=== PATIENT | female | born 1945 | race Caucasian/White ===

== ENCOUNTER 2021-03-11 20:20 | Emergency (ER) | payer OTHER ==
[~2021-03-11] VITALS: Ht 170.2 cm; Wt 65.3 kg
[2021-03-11 21:32] VITALS: BP 149/80
[2021-03-11] MEDS ORDERED: KETOROLAC 60 MG/2 ML VIAL IM ONE (22:05)
--- NOTE | 2021-03-11 22:07 | NUR ---
VERBAL ORDER DAWNA NOE, HOLD IV INSERTION AT THIS TIME. ORDER PLACED.
[2021-03-11 22:11] LABS: BASOPHILS % (AUTO) 0.4 % (0.0-2.0); EOSINOPHILS % (AUTO) 0.4 % (0.0-4.0); HEMATOCRIT 40.3 % (36-48); HEMOGLOBIN 13.5 g/dL (12.0-16.0); LYMPHOCYTES % (AUTO) 29.3 % (20.5-51.1); MEAN CORPUSCULAR HEMOGLOBIN 30 pg (27-31); MEAN CORPUSCULAR HGB CONC 34 g/dL (33-37); MEAN CORPUSCULAR VOLUME 87.8 fL (80-94); MONOCYTES # (AUTO) 0.3 K/uL (0.8-1.0); MONOCYTES % (AUTO) 9.9 % (1.7-9.3); PLATELET COUNT (AUTO) 200 K/uL (140-450); RED BLOOD CELL COUNT(AUTO) 4.59 MIL/uL (4.20-5.40); RED CELL DISTRIBUTION WIDTH 14.5 % (11.6-13.7); WHITE BLOOD COUNT (AUTO) 3.4 K/uL (4.8-10.8)
[2021-03-11 22:29] LABS: ALBUMIN 3.8 g/dL (3.4-5.0); ANION GAP 8.4 (8-16); ASPARTATE AMINOTRANSFERASE 22 U/L (15-37); CARBON DIOXIDE 30.1 mmol/L (21-32); CHLORIDE 106 mmol/L (98-107); CREATININE 0.7 mg/dL (0.6-1.3); GLUCOSE 137 mg/dL (74-106); POTASSIUM 4.5 mmol/L (3.5-5.1); SODIUM SERUM 140 mmol/L (136-145); TOTAL BILIRUBIN 0.2 mg/dL (0.0-1.0); UREA NITROGEN, BLOOD 9 mg/dL (7-18)
--- NOTE | 2021-03-11 23:09 | NUR ---
CALLED FOR CT, KAREN SPEARS STATED HE WILL BE COMING UP SOON FOR PT.
--- NOTE | 2021-03-11 23:14 | NUR ---
PT TAKEN TO CT VIA W/C.
--- NOTE | 2021-03-11 23:45 | NUR ---
PT AMBULATED TO BED 12.
--- NOTE | 2021-03-11 23:45 | NUR ---
C/C CP AND SOB X 8 DAYS. REPORTS PAIN GOT WORSE THE PAST 5 DAYS, RATES PAIN 8/10. REPORTS LT SIDED CP THAT RADIATES TO BIALTERAL UPPER BACK. DENIES COUGH, FEVER, CHILLS, N/V/D. PT STATES SHE WAS REFERRED BY URGENT CARE TO R/O PNA AND PE. ALLERIGES: CODEINE PMH: HTN, DM, PNA, LUPUS. RX: ELIQUIS, AMLODIPINE, PREDNISONE, DEXILANT.
[2021-03-12] MEDS ORDERED: NAPR-54 PO (00:30)
--- NOTE | 2021-03-12 00:32 | NUR ---
ERMD AT BEDSIDE.
== END 2021-03-12 00:36 | disposition home or self-care (01) ==
LOC: MED 20:20
DX: M94.0 Chondrocostal junction syndrome [Tietze] (principal); Z88.5 Allergy status to narcotic agent; Z79.899 Other long term (current) drug therapy
CPT/HCPCS: 36415; 71045; 71250; 80053; 84484; 85025; 85379; 93005; 96372; 99285; J1885

== ENCOUNTER 2021-09-18 15:47 | Emergency (ER) | payer OTHER ==
[~2021-09-18] VITALS: Ht 154.9 cm; Wt 64.0 kg
[~2021-09-18 15:47] MED LIST: NAPR-54 PO
[2021-09-18 15:58] VITALS: BP 145/63
--- NOTE | 2021-09-18 17:06 | NUR ---
PT AMBULATED TO ER BED 12 WITH A STEADY GAIT.
--- NOTE | 2021-09-18 17:18 | NUR ---
76 Y/O FEMALE C/O GENERALIZED ABDOMINAL PAIN 10/10 DESCRIBES ACHING AND CRAMPING NON-RADIATING [id number]. PT ALSO C/O BODY PAIN [id number]. STATES +N/V, DENIES FEVER/CHILLS. ABD IS SOFT, ROUND, NON-TENDER TO PALPATION, BOWEL SOUNDS ACTIVE X4. PMH: HTN, LUPUS ALLERGIES: CODEINE
--- NOTE | 2021-09-18 18:22 | NUR ---
DR. MACIAS AT PT BEDSIDE FOR FURTHER EVALUATION.
[2021-09-18] MEDS: ONDANSETRON 4 MG ODT PO ONE ×3 (18:27→18:52)
[2021-09-18] MEDS: DICYCLOMINE HCL LIQUID 20 MG, ALUMINUM HYD/MAG/SIMETHICONE 30 ML, LIDOCAINE VISCOUS 2% ... PO ONE ×9 (18:28→18:52)
[2021-09-18] MEDS: KETOROLAC 60 MG/2 ML VIAL IM ONE ×3 (18:29→18:53)
[2021-09-18] MEDS ORDERED: ALUMINUM HYD/MAG/SIMETHICONE 30 ML UDC ONE (18:34)
[2021-09-18] MEDS ORDERED: DICYCLOMINE HCL LIQUID 10 MG/5 ML UDC ONE (18:34)
--- NOTE | 2021-09-18 19:28 | NUR ---
GAVE REPORT TO CLEMENTINA JIMENEZ. TRANSFER OF CARE AT THIS TIME.
[2021-09-18] MEDS ORDERED: OMEP40EC24 PO (19:35)
[2021-09-18] MEDS ORDERED: ONDA8TAB87 PO (19:35)
[2021-09-18] MEDS ORDERED: ACET-8386 PO (19:35)
[2021-09-18] MEDS ORDERED: IBUP-2213 PO (19:35)
[2021-09-18 19:45] VITALS: BP 140/64
--- NOTE | 2021-09-18 19:45 | NUR ---
Patient discharged with v/s stable. Written and verbal after care instructions given and explained. Patient alert, oriented and verbalized understanding of instructions. Ambulatory with steady gait. All questions addressed prior to discharge. ID band removed. Patient advised to follow up with PMD. Rx of HYDROCODONE/TYLENOL, PRILOSEC, ZOFRAN AND IBUPROFEN given. Patient educated on indication of medication including possible reaction and side effects. Opportunity to ask questions provided and answered.
== END 2021-09-18 19:45 | disposition home or self-care (01) ==
LOC: MED 15:47
DX: R10.13 Epigastric pain (principal); M79.10 Myalgia, unspecified site; R11.2 Nausea with vomiting, unspecified; I10 Essential (primary) hypertension; Z79.899 Other long term (current) drug therapy; Z88.5 Allergy status to narcotic agent; Z90.49 Acquired absence of other specified parts of digestive tract
CPT/HCPCS: 81002; 93005; 96372; 99283; J1885; Q0162

== ENCOUNTER 2022-10-01 17:58 | Inpatient (IN) | payer OTHER ==
[~2022-10-01] VITALS: Ht 157.5 cm; Wt 70.3 kg
[~2022-10-01 17:58] MED LIST changes: +ACET-8905 PO; +IBUP-2213 PO; +OMEP40EC24 PO; +ONDA8TAB87 PO
[2022-10-01 18:01] VITALS: BP 136/76
--- NOTE | 2022-10-01 18:08 | NUR ---
pt ambulated to er bed 7
[2022-10-01 18:51] LABS: BASOPHILS % (AUTO) 0.3 % (0.0-2.0); EOSINOPHILS % (AUTO) 0.1 % (0.0-4.0); HEMATOCRIT 39.7 % (36-48); HEMOGLOBIN 13.2 g/dL (12.0-16.0); LYMPHOCYTES # (AUTO) 0.7 K/uL (2.5-16.5); MEAN CORPUSCULAR HEMOGLOBIN 28 pg (27-31); MEAN CORPUSCULAR HGB CONC 33 g/dL (33-37); MEAN CORPUSCULAR VOLUME 83.1 fL (80-94); MONOCYTES # (AUTO) 0.7 K/uL (0.8-1.0); MONOCYTES % (AUTO) 10.3 % (1.7-9.3); NEUTROPHILS # (AUTO) 5.2 K/uL (1.8-7.7); NEUTROPHILS % (AUTO) 78.3 % (42.2-75.2); PLATELET COUNT (AUTO) 194 K/uL (140-450); RED BLOOD CELL COUNT(AUTO) 4.78 MIL/uL (4.20-5.40); RED CELL DISTRIBUTION WIDTH 14.7 % (11.6-13.7); WHITE BLOOD COUNT (AUTO) 6.6 K/uL (4.8-10.8)
--- NOTE | 2022-10-01 18:57 | NUR ---
77/F PRESENTS TO ED WITH C/O COUGH AND EPISODES OF SOB X2 WEEKS. PATIENT REPORTS SOB RELATED TO INCREASED PHLEGM PRODUCTION. REPORTS INTERMITTENT FEVERS, DENIES N/V/D, CHILLS, CP OR RECENT SICK CONTACTS.
[2022-10-01 19:09] LABS: ALBUMIN 3.8 g/dL (3.4-5.0); ANION GAP 13.8 (8-16); ASPARTATE AMINOTRANSFERASE 29 U/L (15-37); CHLORIDE 98 mmol/L (98-107); CREATININE 0.9 mg/dL (0.6-1.3); GLUCOSE 131 mg/dL (74-106); POTASSIUM 3.8 mmol/L (3.5-5.1); SODIUM SERUM 131 mmol/L (136-145); TOTAL BILIRUBIN 0.7 mg/dL (0.0-1.0); UREA NITROGEN, BLOOD 13 mg/dL (7-18)
--- NOTE | 2022-10-01 19:24 | NUR ---
Pt report given to IDALMIS SU. Transfer of care at this time.
[2022-10-01] MEDS ORDERED: AZITHROMYCIN 500 MG in DEXTROSE 5% 250 ML IV ONE (20:00)
[2022-10-01] MEDS ORDERED: cefTRIAXone 1,000 MG VIAL ONE (20:26)
[2022-10-01] MEDS ORDERED: ACETAMINOPHEN 325 MG TAB PO PRN (20:30)
[2022-10-01] MEDS ORDERED: LORazepam 2 MG/ML VIAL IVP PRN (20:30)
[2022-10-01] MEDS ORDERED: ZOLPIDEM 10 MG TAB PO PRN (20:30)
[2022-10-01] MEDS ORDERED: ONDANSETRON 4 MG/2 ML VIAL IVP PRN (20:30)
[2022-10-01] MEDS ORDERED: MAG SULF 2000 MG/WATER PREMIX 50 ML IV PRN (20:30)
[2022-10-01] MEDS ORDERED: POTASSIUM CHLORIDE 10 MEQ TABER PO PRN (20:30)
[2022-10-01] MEDS ORDERED: DOCUSATE SODIUM 100 MG GELCAP PO PRN (20:30)
[2022-10-01] MEDS ORDERED: AZITHROMYCIN 500 MG INJ VIAL IV ONE (21:30)
--- NOTE | 2022-10-01 21:48 | NUR ---
Patient will be admitted to care of DR ABERNATHY. Admited to TELE. Will go to [id number]. Belongings list completed. Report to ROLF MCRAE.
--- NOTE | 2022-10-01 21:48 | NUR ---
REPORT GIVEN TO KIMBERLY MCRAE . GETTING PT READY TO TRANSPORT TO TELE BED
--- NOTE | 2022-10-01 21:55 | NUR ---
PT TO THE FLOOR AT THIS TIME
--- NOTE | 2022-10-01 22:00 | NUR ---
RECEIVED PATIENT FROM ER NURSE VIA [facility] FOR CONTINUITY OF CARE. PATIENT IS ALERT ORIENTED X 4. ADMITTED FOR SOB AND COUGH. NO COMPLAIN OF PAIN AT THIS TIME . PIV INTACT AND PATENT. NO SOB NOTED AT THIS TIME. ON 2LITERS NC. WILL CONTINUE TO MONITOR
--- NOTE | 2022-10-01 22:14 | NUR ---
The patient's care was reviewed and supervised by Janine Pollard RN.
[2022-10-01] MEDS: AZITHROMYCIN 500 MG in DEXTROSE 5% 250 ML IV SCH (22:30)
[2022-10-02] VITALS: BP 129/64
[2022-10-02 04:00] VITALS: BP 127/66
[2022-10-02 07:00] LABS: BASOPHILS % (AUTO) 0.3 % (0.0-2.0); EOSINOPHILS % (AUTO) 0.6 % (0.0-4.0); HEMATOCRIT 35.9 % (36-48); HEMOGLOBIN 12.1 g/dL (12.0-16.0); LYMPHOCYTES # (AUTO) 1.1 K/uL (2.5-16.5); LYMPHOCYTES % (AUTO) 20.2 % (20.5-51.1); MEAN CORPUSCULAR HEMOGLOBIN 28 pg (27-31); MEAN CORPUSCULAR HGB CONC 34 g/dL (33-37); MEAN CORPUSCULAR VOLUME 82.9 fL (80-94); MONOCYTES # (AUTO) 0.6 K/uL (0.8-1.0); MONOCYTES % (AUTO) 11.7 % (1.7-9.3); NEUTROPHILS # (AUTO) 3.7 K/uL (1.8-7.7); NEUTROPHILS % (AUTO) 67.2 % (42.2-75.2); PLATELET COUNT (AUTO) 183 K/uL (140-450); RED BLOOD CELL COUNT(AUTO) 4.32 MIL/uL (4.20-5.40); RED CELL DISTRIBUTION WIDTH 14.1 % (11.6-13.7); WHITE BLOOD COUNT (AUTO) 5.5 K/uL (4.8-10.8)
[2022-10-02 07:02] LABS: ANION GAP 11.3 (8-16); CARBON DIOXIDE 26.5 mmol/L (21-32); CHLORIDE 101 mmol/L (98-107); CREATININE 0.7 mg/dL (0.6-1.3); GLUCOSE 95 mg/dL (74-106); POTASSIUM 3.8 mmol/L (3.5-5.1); SODIUM SERUM 135 mmol/L (136-145); UREA NITROGEN, BLOOD 8 mg/dL (7-18)
[2022-10-02 08:00] VITALS: BP 124/65
--- NOTE | 2022-10-02 08:51 | NUR ---
PATIENT HAS BEEN SCREENED AND CATEGORIZED MODERATE NUTRITION RISK. PATIENT WILL BE SEEN WITHIN 3-5 DAYS OF ADMISSION. /10/25 REVIEWED BY JOSUE CARMICHAEL RD
[2022-10-02 12:00] VITALS: BP 114/57
[2022-10-02 16:00] VITALS: BP 133/67
--- NOTE | 2022-10-02 16:46 | NUR ---
0730: RECEIVED PT FROM ROLF MCRAE. PT RESTING IN BED EYES CLOSED. NO GAURDING OR GRIMACING NOTED. NO ACUTE DISTRESS NOTED AT THIS TIME. [id number].
[2022-10-02 20:00] VITALS: BP 124/65
--- NOTE | 2022-10-02 20:04 | NUR ---
0750: REPORT GIVEN TO GEN MCRAE. PT STABLE. NO GAURDING OR GRIMACING NOTED. [id number].
--- NOTE | 2022-10-02 20:05 | NUR ---
PATIENT AWAKE ALERT IN BED ON 2L O2 VIA NC TOLERATING WELL. NO SOB NOTED. RESPIRATION EVEN UNLABORED. IV ACCESS TO THE RIGHT AC INTACT AND PATENT. DENIES PAIN. AFEBRILE. CALL LIGHT ON EASY REACH. SAFETY PRECAUTIONS ARE IN PLACE. REMINDED PATIENT TO ASK FOR ASSISTANCE WHEN NEEDED.
--- NOTE | 2022-10-02 20:53 | NUR ---
ADMINISTERED SCHEDULED DUE MEDICATIONS.
[2022-10-02] MEDS: METOPROLOL 25 MG TAB PO SCH (20:55)
[2022-10-02] MEDS: AZITHROMYCIN 500 MG in DEXTROSE 5% 250 ML IV SCH (23:57)
[2022-10-03] VITALS: BP 115/64
[2022-10-03 04:00] VITALS: BP 131/75
[2022-10-03 06:30] LABS: BASOPHILS % (AUTO) 0.4 % (0.0-2.0); EOSINOPHILS # (AUTO) 0.1 K/uL (0-0.4); EOSINOPHILS % (AUTO) 2.3 % (0.0-4.0); HEMATOCRIT 39.8 % (36-48); HEMOGLOBIN 13.2 g/dL (12.0-16.0); LYMPHOCYTES # (AUTO) 1.1 K/uL (2.5-16.5); LYMPHOCYTES % (AUTO) 24.7 % (20.5-51.1); MEAN CORPUSCULAR HEMOGLOBIN 28 pg (27-31); MEAN CORPUSCULAR HGB CONC 33 g/dL (33-37); MEAN CORPUSCULAR VOLUME 83.1 fL (80-94); MONOCYTES # (AUTO) 0.7 K/uL (0.8-1.0); MONOCYTES % (AUTO) 14.9 % (1.7-9.3); NEUTROPHILS # (AUTO) 2.6 K/uL (1.8-7.7); NEUTROPHILS % (AUTO) 57.7 % (42.2-75.2); PLATELET COUNT (AUTO) 205 K/uL (140-450); RED BLOOD CELL COUNT(AUTO) 4.79 MIL/uL (4.20-5.40); RED CELL DISTRIBUTION WIDTH 13.9 % (11.6-13.7); WHITE BLOOD COUNT (AUTO) 4.5 K/uL (4.8-10.8)
[2022-10-03 06:35] LABS: ANION GAP 12.8 (8-16); CHLORIDE 103 mmol/L (98-107); CREATININE 0.7 mg/dL (0.6-1.3); GLUCOSE 93 mg/dL (74-106); POTASSIUM 3.8 mmol/L (3.5-5.1); SODIUM SERUM 138 mmol/L (136-145); UREA NITROGEN, BLOOD 9 mg/dL (7-18)
--- NOTE | 2022-10-03 07:31 | NUR ---
ALL NEEDS MET THROUGHOUT THE SHIFT. ENDORSED TO DAY SHIFT NURSE FOR CONTINUITY OF CARE.
[2022-10-03 08:00] VITALS: BP 118/67
[2022-10-03] MEDS: METOPROLOL 25 MG TAB PO SCH ×2 (08:51→20:23)
[2022-10-03] MEDS ORDERED: ALBUTEROL HFA MDI 90 MCG/ACTUATION 8 GM INH PRN (11:35)
[2022-10-03] MEDS ORDERED: ALBUTEROL 0.083% 2.5 MG/3 ML NEBU INH PRN (11:40)
[2022-10-03 12:00] VITALS: BP 124/62
--- NOTE | 2022-10-03 14:30 | NUR ---
DID A 6 MIN WALK WITH PT TO DETERMINE IF REQUIRES HOME O2. PT WAS IN NO DISTRESS DURING THE WALK AND STAYED ABOVE 91% ON ROOMAIR. PT WAS TAKEN BACK TO HER ROOM AND SAT ON HER CHAIR. FACILITY SUPERVISOR WAS GIVEN INFO ON HOW PT DID AND THAT SHE DID NOT QUALIFY FOR HOME O2 AT THIS TIME.
[2022-10-03 16:00] VITALS: BP 117/58
--- NOTE | 2022-10-03 19:48 | NUR ---
0800 10/03/2022: RECEIVED PT FROM GEN MCRAE. PT RESTING IN BED EYES CLOSED. NO GUARDING OR GRIMACING. NO ACUTE DISTRESS NOTED AT THIS TIME. [id number].
--- NOTE | 2022-10-03 19:50 | NUR ---
1944: REPORTED OFF TO GEN MCRAE. PT RESTING IN BED. NO GUARDING OR GRIMACING. NO ACUTE DISTRESS NOTED AT THIS TIME. MNURMV2.
[2022-10-03 20:00] VITALS: BP 135/67
--- NOTE | 2022-10-03 20:00 | NUR ---
PATIENT AWAKE ALERT ORIENTED [place] SPEAKING. RESTING IN BED COMFORTABLY. NO ACUTE DISTRESS. DENIES PAIN. ABLE TO COMMUNICATE WITH HER NEEDS. SKIN WARM AND DRY TO THE TOUCH. CALL LIGHT WITHIN REACH.
--- NOTE | 2022-10-03 20:23 | NUR ---
ADMINISTERED SCHEDULED DUE MEDICATIONS.
[2022-10-03] MEDS: guaiFENesin 600 MG TABER PO SCH (20:24)
[2022-10-03] MEDS: AZITHROMYCIN 500 MG in DEXTROSE 5% 250 ML IV SCH (23:05)
[2022-10-04] VITALS: BP 138/79
[2022-10-04 04:00] VITALS: BP 127/64
--- NOTE | 2022-10-04 06:55 | NUR ---
ALL NEEDS ATTENDED AND MET THROUGHOUT THE SHIFT. PATIENT STABLE.
--- NOTE | 2022-10-04 07:08 | NUR ---
receive the patinet from the cover cutter rn in rm [id number] with admitting diagnosis of pneumonia . for possible discharge today because she has her doctor's appointment tomorrow . will continue to monitor
[2022-10-04] MEDS: METOPROLOL 25 MG TAB PO SCH (09:11)
[2022-10-04] MEDS: guaiFENesin 600 MG TABER PO SCH (09:13)
[2022-10-04 10:07] LABS: BASOPHILS # (AUTO) 0.1 K/uL (0.00-0.22); EOSINOPHILS # (AUTO) 0.1 K/uL (0-0.4); EOSINOPHILS % (AUTO) 1.3 % (0.0-4.0); HEMATOCRIT 44.2 % (36-48); HEMOGLOBIN 14.7 g/dL (12.0-16.0); LYMPHOCYTES # (AUTO) 1.5 K/uL (2.5-16.5); LYMPHOCYTES % (AUTO) 26.5 % (20.5-51.1); MEAN CORPUSCULAR HEMOGLOBIN 28 pg (27-31); MEAN CORPUSCULAR HGB CONC 33 g/dL (33-37); MONOCYTES # (AUTO) 0.7 K/uL (0.8-1.0); MONOCYTES % (AUTO) 12.4 % (1.7-9.3); NEUTROPHILS # (AUTO) 3.3 K/uL (1.8-7.7); NEUTROPHILS % (AUTO) 58.8 % (42.2-75.2); PLATELET COUNT (AUTO) 250 K/uL (140-450); RED BLOOD CELL COUNT(AUTO) 5.33 MIL/uL (4.20-5.40); RED CELL DISTRIBUTION WIDTH 14.1 % (11.6-13.7); WHITE BLOOD COUNT (AUTO) 5.7 K/uL (4.8-10.8)
[2022-10-04 10:12] LABS: ANION GAP 13.9 (8-16); CARBON DIOXIDE 26.8 mmol/L (21-32); CHLORIDE 103 mmol/L (98-107); CREATININE 0.8 mg/dL (0.6-1.3); GLUCOSE 146 mg/dL (74-106); POTASSIUM 3.7 mmol/L (3.5-5.1); SODIUM SERUM 140 mmol/L (136-145); UREA NITROGEN, BLOOD 10 mg/dL (7-18)
[2022-10-04 10:14] LABS: MAGNESIUM 2.2 mg/dL (1.8-2.4); PHOSPHORUS 2.7 mg/dL (2.5-4.9)
[2022-10-04] MEDS ORDERED: MUC600 PO ×2 (10:49→12:06)
--- NOTE | 2022-10-04 11:34 | NUR ---
made some discharge patient teaching , patient in a stable condition . no complain of pain at this time . no sign and symptoms of respiratory distress . all intravenous , identifiaction band was remove inclusing the heart monitor was discontinue . brought to the lobby thru a wheelchair to a waiting private car with the .
[2022-10-04 11:45] VITALS: BP 132/68
[2022-10-04] MEDS ORDERED: AMOX1TAB7 PO (12:03)
== END 2022-10-04 12:25 | disposition home or self-care (01) | DRG 871 ==
LOC: MED 17:58 → MTU 20:29
PROVIDERS: ADMIT Family Medicine; ATTEND Family Medicine
DX: A41.9 Sepsis, unspecified organism (principal); J18.9 Pneumonia, unspecified organism; E87.1 Hypo-osmolality and hyponatremia; I10 Essential (primary) hypertension; K21.9 Gastro-esophageal reflux disease without esophagitis; E83.51 Hypocalcemia; Z20.822 Contact with and (suspected) exposure to COVID-19; M32.9 Systemic lupus erythematosus, unspecified; Z88.8 Allergy status to other drugs, medicaments and biological substances; Z79.899 Other long term (current) drug therapy; Z79.891 Long term (current) use of opiate analgesic; Z79.1 Long term (current) use of non-steroidal anti-inflammatories (NSAID)
CPT/HCPCS: 36415; 71045; 80048; 80053; 83735; 83880; 84100; 84484; 85025; 87040; 87081; 93005; 96365; 96375; 99285; J0456; J0696; J7060; Q0092

== ENCOUNTER 2023-06-29 14:05 | Emergency (ER) | payer OTHER ==
[~2023-06-29] VITALS: Ht 156.2 cm; Wt 62.1 kg
[~2023-06-29 14:05] MED LIST changes: +AMOX1TAB7 PO; +MUC600 PO
[2023-06-29 14:10] VITALS: BP 138/78; PULSE 89; RESP 20; TEMP 98; O2SAT 98
[2023-06-29 14:56] LABS: BASOPHILS % (AUTO) 0.6 % (0.0-2.0); EOSINOPHILS % (AUTO) 0.2 % (0.0-4.0); HEMATOCRIT 40.9 % (36-48); HEMOGLOBIN 13.9 g/dL (12.0-16.0); LYMPHOCYTES # (AUTO) 1.3 K/uL (2.5-16.5); LYMPHOCYTES % (AUTO) 25.5 % (20.5-51.1); MEAN CORPUSCULAR HEMOGLOBIN 28 pg (27-31); MEAN CORPUSCULAR HGB CONC 34 g/dL (33-37); MONOCYTES # (AUTO) 0.7 K/uL (0.8-1.0); MONOCYTES % (AUTO) 13.8 % (1.7-9.3); NEUTROPHILS # (AUTO) 3.1 K/uL (1.8-7.7); NEUTROPHILS % (AUTO) 59.9 % (42.2-75.2); PLATELET COUNT (AUTO) 189 K/uL (140-450); RED BLOOD CELL COUNT(AUTO) 4.93 MIL/uL (4.20-5.40); RED CELL DISTRIBUTION WIDTH 14.5 % (11.6-13.7); WHITE BLOOD COUNT (AUTO) 5.1 K/uL (4.8-10.8)
[2023-06-29 15:27] LABS: ALANINE AMINOTRANSFERASE 19 U/L (12-78); ALBUMIN 3.7 g/dL (3.4-5.0); ALKALINE PHOSPHATASE 81 U/L (50-136); ANION GAP 10.8 (8-16); ASPARTATE AMINOTRANSFERASE 27 U/L (15-37); CALCIUM 8.9 mg/dL (8.5-10.1); CHLORIDE 98 mmol/L (98-107); GLUCOSE 156 mg/dL (74-106); POTASSIUM 3.8 mmol/L (3.5-5.1); SODIUM SERUM 132 mmol/L (136-145); TOTAL PROTEIN, SERUM 7.2 g/dL (6.4-8.2); UREA NITROGEN, BLOOD 8 mg/dL (7-18)
[2023-06-29 15:56] LABS: APPEARANCE,URINE CLEAR (CLEAR); BILIRUBIN,URINE 1+ (NEGATIVE); BLOOD, URINE NEGATIVE (NEGATIVE); COLOR,URINE YELLOW (YELLOW); LEUKOCYTE ESTERASE ,URINE 1+ (NEGATIVE); NITRITE, URINE NEGATIVE (NEGATIVE); PH,URINE 6.5 (5.0-9.0); PROTEIN,URINE NEGATIVE (NEGATIVE); UGLUCOSE NEGATIVE (NEGATIVE); UROBILINOGEN,URINE 0.2 EU/dL (0.2 - 1)
[2023-06-29 16:07] LABS: BACTERIA,URINE FEW /HPF (None Seen); ICTOTEST NEGATIVE (NEGATIVE); RBC,URINE 0-5 /HPF (0-5); SQUAMOUS EPITHELIAL CELL,UR 4-10 (MOD) /LPF (0-3 (FEW))
[2023-06-29] MEDS ORDERED: DOCU-299 PO (16:43)
[2023-06-29] MEDS ORDERED: CEPH-588 PO (16:43)
[2023-06-29 17:00] VITALS: BP 130/78; PULSE 80; RESP 16; TEMP 98; O2SAT 98
== END 2023-06-29 17:00 | disposition home or self-care (01) ==
LOC: MED 14:05
DX: N39.0 Urinary tract infection, site not specified (principal); K59.00 Constipation, unspecified; R53.1 Weakness; I10 Essential (primary) hypertension; Z79.899 Other long term (current) drug therapy; Z79.2 Long term (current) use of antibiotics; Z79.1 Long term (current) use of non-steroidal anti-inflammatories (NSAID); Z88.5 Allergy status to narcotic agent
CPT/HCPCS: 36415; 71045; 80053; 81001; 84484; 85025; 87086; 93005; 99285

== ENCOUNTER 2023-09-19 00:22 | Inpatient (IN) | payer OTHER ==
[~2023-09-19] VITALS: Ht 154.9 cm; Wt 64.4 kg
[~2023-09-19 00:22] MED LIST changes: +CEPH-588 PO; +DOCU-299 PO
[2023-09-19 00:29] VITALS: BP 203/129; PULSE 119; RESP 20; TEMP 98.4; O2SAT 99
[2023-09-19] MEDS: DILTIAZEM 25 MG/5 ML VIAL IVP ONE (02:35)
[2023-09-19 02:45] LABS: BASOPHILS % (AUTO) 0.5 % (0.0-2.0); EOSINOPHILS % (AUTO) 0.2 % (0.0-4.0); HEMATOCRIT 41.2 % (36-48); HEMOGLOBIN 13.7 g/dL (12.0-16.0); LYMPHOCYTES # (AUTO) 1.4 K/uL (2.5-16.5); LYMPHOCYTES % (AUTO) 23.9 % (20.5-51.1); MEAN CORPUSCULAR HEMOGLOBIN 27 pg (27-31); MEAN CORPUSCULAR HGB CONC 33 g/dL (33-37); MEAN CORPUSCULAR VOLUME 82.3 fL (80-94); MONOCYTES # (AUTO) 0.8 K/uL (0.8-1.0); MONOCYTES % (AUTO) 14.4 % (1.7-9.3); NEUTROPHILS # (AUTO) 3.6 K/uL (1.8-7.7); PLATELET COUNT (AUTO) 139 K/uL (140-450); RED BLOOD CELL COUNT(AUTO) 5.01 MIL/uL (4.20-5.40); RED CELL DISTRIBUTION WIDTH 15.9 % (11.6-13.7); WHITE BLOOD COUNT (AUTO) 5.9 K/uL (4.8-10.8)
[2023-09-19 02:57] LABS: ANION GAP 12.1 (8-16); CALCIUM 8.8 mg/dL (8.5-10.1); CARBON DIOXIDE 25.8 mmol/L (21-32); CHLORIDE 102 mmol/L (98-107); CREATININE 0.8 mg/dL (0.6-1.3); GLUCOSE 87 mg/dL (74-106); POTASSIUM 3.9 mmol/L (3.5-5.1); SODIUM SERUM 136 mmol/L (136-145); UREA NITROGEN, BLOOD 10 mg/dL (7-18)
[2023-09-19 03:15] VITALS: O2SAT 95
[2023-09-19 03:35] LABS: ALANINE AMINOTRANSFERASE 15 U/L (12-78); ALBUMIN 4.2 g/dL (3.4-5.0); ALKALINE PHOSPHATASE 101 U/L (50-136); ASPARTATE AMINOTRANSFERASE 19 U/L (15-37); BILIRUBIN,DIRECT 0.1 mg/dL (0.0-0.3); TOTAL BILIRUBIN 0.4 mg/dL (0.0-1.0); TOTAL PROTEIN, SERUM 8.2 g/dL (6.4-8.2)
[2023-09-19 06:14] VITALS: O2SAT 95
[2023-09-19] MEDS: METOPROLOL 25 MG TAB PO SCH (08:57)
[2023-09-19] MEDS: NACL 0.9% 1,000 ML IV SCH (08:58)
[2023-09-19] MEDS ORDERED: MELATONIN 3 MG TAB PO PRN (11:25)
[2023-09-19] MEDS ORDERED: ONDANSETRON 4 MG/2 ML VIAL IVP PRN (11:25)
[2023-09-19] MEDS ORDERED: MAG SULF 2000 MG/WATER PREMIX 50 ML IV PRN (11:25)
[2023-09-19] MEDS ORDERED: POTASSIUM CHLORIDE 10 MEQ TABER PO PRN (11:25)
[2023-09-19] MEDS ORDERED: POLYETHYLENE GLYCOL 17 GM/PKT PO PRN (11:25)
[2023-09-19 12:20] LABS: FREE T4 (FREE THYROXINE) 1.06 ng/dL (0.76-1.46); THYROID STIMULATING HORMONE 1.66 uIU/mL (0.34-3.74)
[2023-09-19] MEDS: ACETAMINOPHEN 325 MG TAB PO PRN (16:01)
[2023-09-19 20:13] VITALS: PULSE 82; RESP 20; O2SAT 95
[2023-09-20] VITALS: PULSE 76
[2023-09-20 04:00] VITALS: BP 152/75; PULSE 73; RESP 18; TEMP 96.5; O2SAT 97
[2023-09-20 06:16] LABS: BASOPHILS % (AUTO) 0.3 % (0.0-2.0); EOSINOPHILS % (AUTO) 0.2 % (0.0-4.0); HEMATOCRIT 39.7 % (36-48); HEMOGLOBIN 13.5 g/dL (12.0-16.0); LYMPHOCYTES # (AUTO) 1.8 K/uL (2.5-16.5); LYMPHOCYTES % (AUTO) 29.6 % (20.5-51.1); MEAN CORPUSCULAR HEMOGLOBIN 28 pg (27-31); MEAN CORPUSCULAR HGB CONC 34 g/dL (33-37); MEAN CORPUSCULAR VOLUME 82.2 fL (80-94); MONOCYTES # (AUTO) 0.9 K/uL (0.8-1.0); MONOCYTES % (AUTO) 14.6 % (1.7-9.3); NEUTROPHILS # (AUTO) 3.4 K/uL (1.8-7.7); NEUTROPHILS % (AUTO) 55.3 % (42.2-75.2); PLATELET COUNT (AUTO) 180 K/uL (140-450); RED BLOOD CELL COUNT(AUTO) 4.83 MIL/uL (4.20-5.40); RED CELL DISTRIBUTION WIDTH 15.8 % (11.6-13.7); WHITE BLOOD COUNT (AUTO) 6.1 K/uL (4.8-10.8)
[2023-09-20 06:28] LABS: ALANINE AMINOTRANSFERASE 12 U/L (12-78); ALBUMIN 3.5 g/dL (3.4-5.0); ALKALINE PHOSPHATASE 89 U/L (50-136); ANION GAP 8.2 (8-16); ASPARTATE AMINOTRANSFERASE 19 U/L (15-37); CALCIUM 8.5 mg/dL (8.5-10.1); CARBON DIOXIDE 29.2 mmol/L (21-32); CHLORIDE 104 mmol/L (98-107); CREATININE 0.8 mg/dL (0.6-1.3); GLUCOSE 91 mg/dL (74-106); MAGNESIUM 2.2 mg/dL (1.8-2.4); PHOSPHORUS 3.5 mg/dL (2.5-4.9); POTASSIUM 4.4 mmol/L (3.5-5.1); SODIUM SERUM 137 mmol/L (136-145); TOTAL BILIRUBIN 0.8 mg/dL (0.0-1.0); TOTAL PROTEIN, SERUM 7.3 g/dL (6.4-8.2); UREA NITROGEN, BLOOD 7 mg/dL (7-18)
[2023-09-20 08:00] VITALS: BP 158/71; PULSE 80; PULSE 82; RESP 18; RESP 20; TEMP 98.1; O2SAT 97; O2SAT 98
[2023-09-20] MEDS ORDERED: predniSONE 1 MG TAB PO SCH (09:00)
[2023-09-20] MEDS: PANTOPRAZOLE 40 MG TABEC PO SCH (09:40)
[2023-09-20] MEDS: predniSONE 5 MG TAB PO SCH (10:00)
[2023-09-20 12:00] VITALS: BP 133/80; PULSE 105; RESP 18; TEMP 98.6; O2SAT 97
[2023-09-20] MEDS ORDERED: RIVA20TA PO (16:22)
[2023-09-20] MEDS ORDERED: METO25TA PO (16:22)
[2023-09-20] MEDS ORDERED: METOPROLOL 50 MG TAB PO SCH (21:00)
[2023-09-21] MEDS ORDERED: RIVAROXABAN 10 MG TAB PO SCH (09:00)
== END 2023-09-20 17:26 | disposition home or self-care (01) | DRG 305 ==
LOC: MED 00:22 → MTU 07:03 → MMU 18:59
PROVIDERS: ADMIT Student in an Organized Health Care Education/Training Program; ATTEND Student in an Organized Health Care Education/Training Program
DX: I16.0 Hypertensive urgency (principal); I48.19 Other persistent atrial fibrillation; M32.9 Systemic lupus erythematosus, unspecified; I10 Essential (primary) hypertension; Z91.09 Other allergy status, other than to drugs and biological substances; Z79.899 Other long term (current) drug therapy; Z79.01 Long term (current) use of anticoagulants
CPT/HCPCS: 36415; 71045; 80048; 80053; 80076; 83735; 84100; 84439; 84443; 84484; 85025; 87081; 93005; 96361; 96374; 97116; 97163-GP; 99291; J1644; J3490; J7512; Q0092

== ENCOUNTER 2023-11-19 17:17 | Emergency (ER) | payer OTHER ==
[~2023-11-19] VITALS: Ht 167.6 cm; Wt 60.8 kg
[~2023-11-19 17:17] MED LIST changes: -ACET-8905 PO; -AMOX1TAB7 PO; -CEPH-588 PO; -DOCU-299 PO; -IBUP-2213 PO; +METO25TA PO; -MUC600 PO; -NAPR-54 PO; +RIVA20TA PO
[2023-11-19 17:27] VITALS: BP 168/67; PULSE 85; RESP 18; TEMP 98.1; O2SAT 94
[2023-11-19] MEDS ORDERED: METO25TA PO (17:36)
== END 2023-11-19 17:46 | disposition home or self-care (01) ==
LOC: MED 17:17
DX: Z76.0 Encounter for issue of repeat prescription (principal); Z79.899 Other long term (current) drug therapy
CPT/HCPCS: 99281; 99283